=== PATIENT | female | born 1945 | race Two or more races ===

== ENCOUNTER 2022-01-16 20:15 | Emergency (ER) | payer OTHER | END 2022-01-16 20:25 | LOC: ER 20:18 → EDBD 20:18 → ER 20:25 | DX: I46.9 Cardiac arrest, cause unspecified (principal); E11.9 Type 2 diabetes mellitus without complications; I10 Essential (primary) hypertension; R51.9 Headache, unspecified | CPT/HCPCS: 92950 ==